=== PATIENT | female | born 1955 | race Caucasian/White ===

== ENCOUNTER 2019-03-16 07:56 | Day surgery (SDC) | payer OTHER, MEDICARE ==
[~2019-03-16] VITALS: Ht 157.5 cm; Wt 75.8 kg
[2019-03-16 08:23] LABS: HEMATOCRIT 39.7 % (36.0-48.0); HEMOGLOBIN 13.6 g/dL (12-16); MCH 28.9 pg (26.0-34.0); MCHC 34.3 g/dL (31.0-37.0); MCV 84.5 fL (80.0-100.0); MEAN PLATELET VOLUME 10.5 fL (7.4-10.4); RBC 4.7 10x6/uL (4.00-5.40); RDW 14.9 % (11.5-14.5); WBC 9.7 10x3/uL (4.8-10.8)
[2019-03-16 08:34] LABS: CALC OSMOLALITY 280 mosm/kg (275-300); CALCIUM 9.6 mg/dL (8.5-10.1); CARBON DIOXIDE 26.3 mmol/L (21.0-32.0); CHLORIDE - SERUM 104 mmol/L (98-107); CREATININE - SERUM 0.8 mg/dL (0.6-1.3); GLUCOSE 103 mg/dL (74-106); POTASSIUM - SERUM 3.9 mmol/L (3.5-5.1); SODIUM 140 mmol/L (136-145); UREA NITROGEN 17 mg/dL (7-18); eGFR NON AFRICAN AMERICAN 77 mL/min (90-120)
[2019-03-16] MEDS ORDERED: CELEBREX200 MG PO (08:54)
[2019-03-16] MEDS ORDERED: PROTONIX40 MG PO (08:54)
[2019-03-16] MEDS ORDERED: HCTZ25 MG PO (08:55)
[2019-03-16 08:57] VITALS: BP 111/63; Ht 157.5 cm; Wt 75.8 kg
--- NOTE | 2019-03-16 14:24 | NUR ---
DC INSTRUCTIONS GIVEN TO PT/FRIEND. STATE UNDERSTANDING. DC'D IV CATH FULLY INTACT.
--- NOTE | 2019-03-16 14:42 | NUR ---
PT LEFT UNIT VIA WC AT 1435
--- NOTE | 2019-04-06 11:31 | OP ---
PATIENT NAME: LEIA FRANCIS MEDICAL RECORD: [id number] :57 LOCATION:D.OPS ADMISSION DATE: SURGEON: BIB JIMENES MD DATE OF OPERATION: 03/16/2019 PREOPERATIVE DIAGNOSES: Hoarseness and right true vocal cord lesion. POSTOPERATIVE DIAGNOSES: Hoarseness and right true vocal cord lesion. PROCEDURE: Microsuspension laryngoscopy and excision of right true vocal cord lesion. SURGEON: Bib Jimenes MD ANESTHESIA: General orotracheal. BLOOD LOSS: Less than 1 cc. SPECIMENS: Right true vocal cord. COMPLICATIONS: None. DISPOSITION: Recovery stable. PROCEDURE NOTE: She was brought to the operating room and placed in supine position, intubated and sedated by anesthesia. The oral cavity and oropharynx was examined using a headlight and gloves. Then, using a Kleinsasser J laryngoscope, a plastic tooth guard was placed over the gums and the hypopharynx, lateral posterior pharyngeal bateman and base of the tongue, vallecula, pyriform, supraglottic larynx, postcricoid area were all examined and unremarkable and then examined the cords. Left cord was really very close to normal, maybe some Jonathan's edema and some very wispy leukoplakia changes, but nothing suspicious at all. The right cord pretty much from the anterior commissure all the way passed the vocal process to the arytenoid posteriorly, had a thick carpet-like red granular friable tissue. This extended mostly on the superior surface to just below the medial edge of the cord. This was all removed using a combination of cup forceps, upbiting scissors and retraction with some suction to get good visualization, it was so friable, it would not come off in one piece, but this was taken down and all the visible granular tissue was removed, creating a nice smooth right visible cord. This was all sent for path. There was really no significant bleeding. Afrin pledget was placed for a few minutes, then Afrin pledget was removed. She was awakened, extubated, and transported to recovery in good condition. No complications. TRANSINT:[id number] Voice Confirmation ID: [id number] DOCUMENT ID: [id number] BIB JIMENES MD at 1137 CC: [id number] DICTATION DATE: 03/16/19 1243 JANITOR HEAD: 03/16/19 1322 [facility] [place] 03/16/19 [facility] [address] [facility] [place] [address]
--- NOTE | 2019-04-06 11:31 | HP ---
PATIENT: LEIA HERNANDEZ MEDICAL RECORD: [id number] ACCOUNT: [id number] LOCATION:JEFERSON : 57 ADMISSION DATE: 03/16/19 PCP: DARON KEN DO HISTORY AND PHYSICAL EXAMINATION HISTORY OF PRESENT ILLNESS: Ms. Hernandez is a 63-year-old female with persistent hoarseness and large vocal cord polyps. She is being admitted for microsuspension laryngoscopy and excision of suspicious vocal cord lesion. PAST MEDICAL HISTORY: Includes hypertension, hypothyroidism, and reflux. CURRENT MEDICATIONS: Diuretic, Synthroid, and something for reflux. ALLERGIES: STEROIDS AND VICODIN. PHYSICAL EXAMINATION: GENERAL: She has a dry hoarse voice. FACE: Normal and symmetric. EYES: Sclerae and conjunctivae are normal. EARS: Canals and TMs are normal. NOSE: No mass, polyps, or drainage. ORAL CAVITY AND OROPHARYNX: Tongue protrudes in midline. Pharynx is normal, a little dry. NECK: No masses, no adenopathy. CHEST: Clear. CARDIOVASCULAR: Regular rate and rhythm, no murmur. Laryngoscopy reveals bilateral vocal cord polyps with irritated surface. The right one has a rough appearance, possibly some dysplasia. IMPRESSION: Persistent hoarseness and large vocal cord polyps. PLAN: Microsuspension laryngoscopy and excision of certainly suspicious appearing lesion on the right cord, but any other areas that looks like to maybe some dysplasia as well for a diagnosis as in the preop H and P. TRANSINT:[id number] Voice Confirmation ID: [id number] DOCUMENT ID: [id number] MARISA DERAS MD at 1131 CC: [id number] DICTATION DATE: 03/12/19 1529 [employer] SUPERVISOR: 03/12/19 1548 [facility] 03/16/[place] [address]
== END 2019-03-16 14:35 | disposition home or self-care (01) ==
LOC: D.OPS 07:56 → D.PAN 10:15 → D.OPS 10:15
PROVIDERS: Anesthesiology; ATTEND Otolaryngology
DX: R49.0 Dysphonia (principal); J38.3 Other diseases of vocal cords; Z01.812 Encounter for preprocedural laboratory examination